=== PATIENT | male | born 1965 | race Caucasian/White ===

== ENCOUNTER 2023-01-28 15:28 | Emergency (ER) | payer OTHER ==
[~2023-01-28] VITALS: Ht 175.2 cm; Wt 95.3 kg
[2023-01-28] MEDS ORDERED: SILDENAFIL20 M1 PO (16:05)
[2023-01-28] MEDS ORDERED: ROSUVASTATIN CA20 MG PO (16:05)
[2023-01-28] MEDS ORDERED: ZESTORETIC 10-1 EACH PO (16:05)
[2023-01-28 16:27] LABS: BASO % 0.4 % (0.0-1.0); EOS # 0.1 10*3/uL (0.0-0.4); EOS % 1.3 % (1.0-4.0); HEMATOCRIT 43.2 % (42.0-52.0); LYMPH # 2.1 10*3/uL (1.3-4.4); LYMPH % 30.6 % (27.0-41.0); MEAN CELL VOLUME 87.3 fl (80.0-94.0); MEAN CORPUSCULAR HGB 30.3 pg (27.0-31.0); MEAN CORPUSCULAR HGB CONC 34.7 g/dl (33.0-37.0); MEAN PLATELET VOLUME 10.5 fl (9.6-12.3); MONO # 0.7 10*3/uL (0.1-1.0); MONO % 10.1 % (3.0-9.0); NEUT # 3.9 10*3/uL (2.3-7.9); PLATELET COUNT AUTOMATED 163 10*3/uL (130-400); RED BLOOD COUNT 4.95 10*6/uL (4.50-5.90); RED CELL DISTRI WIDTH 12.7 % (0-14.5); WHITE BLOOD COUNT 6.9 10*3/uL (4.8-10.8)
[2023-01-28 16:39] LABS: ACT PARTIAL THROMBO TIME 26.7 SECONDS (20.0-32.1)
[2023-01-28 16:55] LABS: ALKALINE PHOSPHATASE 107 U/L (46-116); BUN 16 mg/dl (9-23); CHLORIDE 106 mmol/L (98-107); LIPASE 46 U/L (12-53); POTASSIUM 3.8 mmol/L (3.4-5.1); SGPT/ALT 42 U/L (10-49); TOTAL PROTEIN 6.5 gm/dL (6.0-8.0)
[2023-01-28] MEDS ORDERED: METRONIDAZOLE500 M1 PO (18:27)
[2023-01-28] MEDS ORDERED: CIPRO500 MG PO (18:27)
== END 2023-01-28 18:36 | disposition home or self-care (01) ==
LOC: ED 15:28
PROVIDERS: Emergency Medicine
DX: K57.92 Diverticulitis of intestine, part unspecified, without perforation or abscess without bleeding (principal); R06.02 Shortness of breath; R05.9 Cough, unspecified; K92.1 Melena; Z79.899 Other long term (current) drug therapy

== ENCOUNTER 2023-03-02 18:48 | Emergency (ER) | payer OTHER ==
[~2023-03-02] VITALS: Ht 175.2 cm; Wt 96.2 kg
[~2023-03-02 18:48] MED LIST: CIPRO500 MG PO; METRONIDAZOLE500 M1 PO; ROSUVASTATIN CA20 MG PO; SILDENAFIL20 M1 PO; ZESTORETIC 10-1 EACH PO
== END 2023-03-02 20:29 | disposition home or self-care (01) ==
LOC: ED 18:48
DX: S63.617A Unspecified sprain of left little finger, initial encounter (principal); F31.9 Bipolar disorder, unspecified; W22.8XXA Striking against or struck by other objects, initial encounter; Y93.89 Activity, other specified; Y92.89 Other specified places as the place of occurrence of the external cause; Y99.8 Other external cause status

== ENCOUNTER → 2023-06-16 | Outpatient (CLI) | payer OTHER | END | disposition home or self-care (01) | LOC: RAD 10:11 | PROVIDERS: ATTEND Nurse Practitioner Family | DX: M25.512 Pain in left shoulder (principal) ==